=== PATIENT | male | born 1980 | race Two or more races ===

== ENCOUNTER 2018-04-11 12:49 | Emergency (ER) | payer OTHER ==
[2018-04-11 13:19] VITALS: BP 130/86; PULSE 85; TEMP 100.2; BMI 29.6
--- NOTE | 2018-04-11 13:40 | PDOC ---
Attending Attestation - Medical Decision Making 04/11/18 18:27 Knee X-ray was reviewed by Dr. Miguel and over-read by Radiology. IMPRESSION: There is no radiographic evidence of fracture. Mild degenerative bony spurring is noted along the upper pole of the patella. There is a probable suprapatellar joint effusion. Follow-up imaging as clinically indicated. Documentation prepared by Genoveva Mason, acting as medical surgical tech for Lauren Miguel MD. <Genoveva Mason - Last Filed: 04/11/18 18:27> - Resident Resident Name: Seth Dunn - ED Attending Attestation I have performed the following: I have examined & evaluated the patient, The case was reviewed & discussed with the resident, I agree w/resident's findings & plan, Exceptions are as noted - HPI HPI: 04/11/18 15:51 The patient is a 37 year old male with a significant past medical history of brain CA s/p resection at age 19 (with residual L facial droop), bipolar d/o ( on depakote, abilify) who presents to the emergency department complaining of R knee pain for 2 weeks. Pt reports he was walking outside of his apartment building but his knee buckled and he almost fell and called 911. Pt appears intoxicated on arrival and admits to smoking marijuana before coming to the ED. Denies EtOH or other drug use. Denies fevers, chills. Is able to bear weight on knee but with pain. Uses cane for ambulation since onset of knee pain. No hx surgery to the knee. Denies recent headache, cp, sob, abd pain, n/v/d, calf pain , edema. Spoke with Ruth Ann: Pt has been abusing marijuana and EtOH recently. There is a CPS case currently open because he came home belligerent and intoxicated last night to his apt where he lives with his and 2 kids. She is trying to get a restraining order at this time. She reports his right knee has been bothering him since playing in a basketball game last week. The patient denies chest pain, shortness of breath, headache, and dizziness. Denies fevers, chills, nausea, vomiting, diarrhea, and constipation. Denies dysuria, frequency, urgency, and hematuria. Allergies: NKA Past surgical history: brain surgery to remove tumor Social history: No reported cigarette, alcohol, or drug use. PCP: unknown - Physicial Exam PE: 04/11/18 20:01 GENERAL: Awake, alert, and fully oriented, in no acute distress HEAD: No signs of trauma EYES: PERRLA, EOMI, sclera anicteric, conjunctiva clear ENT: Auricles normal inspection, hearing grossly normal, nares patent, oropharynx clear without exudates. Moist mucosa NECK: Normal ROM, supple, no lymphadenopathy, JVD, or masses LUNGS: Breath sounds equal, clear to auscultation bilaterally. No wheezes, and no crackles HEART: Regular rate and rhythm, normal S1 and S2, no murmurs, rubs or gallops ABDOMEN: Soft, nontender, normoactive bowel sounds. No guarding, no rebound. No masses EXTREMITIES: R knee with ttp over MCL. Normal range of motion, no edema. No clubbing or cyanosis. No cords, erythema. No deformities. WWP. NEUROLOGICAL: Normal speech, + L facial droop, 5/5 strength in all 4 extremities, normal sensation to light touch in all 4 extremities, normal cerebellar exam, antalgic but steady gait, normal reflexes and tone SKIN: Warm, Dry, normal turgor, no rashes or lesions noted. - Medical Decision Making 04/11/18 20:04 37yo M hx brain ca s/p resection with residual L facial droop, bipolar d/o, PSA BIBEMS after acute knee pain while walking. Vitals wnl. Likely ligamentous or mensiscus injury. Will obtain XR to r/o bony injury but unlikely. Pt now appears clinically sober, is cooperative. States he feels better after toradol and is ambulating in the ED with cane with steady gait. States that he can not go to his apartment due to aforementioned social issues, states he will "find a place to go." Pt referred to ortho for knee pain. Stable for DC home. I discussed the physical exam findings, ancillary test results and final diagnoses with the patient. I answered all of the patient's questions. The patient was satisfied with the care received and felt comfortable with the discharge plan and treatment plan. The patient will call their primary care physician within 24 hours to arrange follow-up and will return to the Emergency Department with any new, persistent or worsening symptoms. <Nassef,Yomna - Last Filed: 04/11/18 20:13>
--- NOTE | 2018-04-11 13:59 | PDOC ---
History of Present Illness <Renetta Thacker - Last Filed: 04/11/18 15:23> - General History Source: Patient Exam Limitations: No Limitations - History of Present Illness Initial Comments: 04/11/18 13:52 The patient is a 37M with a PMH of brain CA with residual L facial droop who presents to the ER with complaints of b/l leg pain. The patient cannot tell me when it started but describes a cramping pain going down his legs bilaterally in the kyala-medial aspect. He states it is constant and does not change with movements. He denies any exacerbating or alleviating factors. He denies any back pain, fevers, h/o IVDA, numbness, tingling, or weakness, and saddle anesthesia. <Seth Dunn - Last Filed: 04/11/18 19:55> - General Chief Complaint: Pain, Acute Stated Complaint: LEG PAIN Time Seen by Provider: 04/11/18 13:11 Past History <Renetta Thacker - Last Filed: 04/11/18 15:23> - Past Medical History COPD: No - Surgical History Neurologic Surgery: Yes (SX FOR BRAIN TUMOR) - Suicide/Smoking/Psychosocial Hx Smoking History: Never smoked Have you smoked in the past 12 months: No Information on smoking cessation initiated: No Hx Alcohol Use: No Drug/Substance Use Hx: No Substance Use Type: None <Seth Dunn - Last Filed: 04/11/18 19:55> - Past Medical History Allergies/Adverse Reactions: Allergies Allergy/AdvReac Type Severity Reaction Status Date / Time No Known Allergies Allergy Verified 04/11/18 13:18 Home Medications: Ambulatory Orders Unobtainable 06/18/16 Review of Systems - Review of Systems Able to Perform ROS?: Yes Comments:: 04/11/18 14:02 GENERAL/CONSTITUTIONAL: No fever or chills. No weakness. HEAD, EYES, EARS, NOSE AND THROAT: No change in vision. No ear pain or discharge. No sore throat. CARDIOVASCULAR: No chest pain, palpitations, or lightheadedness. RESPIRATORY: No cough, wheezing, shortness of breath, or hemoptysis. GASTROINTESTINAL: No nausea, vomiting, diarrhea, constipation, or abdominal pain. GENITOURINARY: No dysuria, frequency, hematuria, or change in urination. MUSCULOSKELETAL:Positive for b/l leg cramping. No joint or muscle swelling or pain. No neck or back pain. SKIN: No rash or lesions. NEUROLOGIC: No headache, numbness, tingling, weakness, loss of consciousness, or change in strength/sensation. ENDOCRINE: No increased thirst. No abnormal weight change. HEMATOLOGIC/LYMPHATIC: No anemia, easy bleeding, or history of blood clots. ALLERGIC/IMMUNOLOGIC: No hives or skin allergy. Is the patient limited Amharic proficient: No <Seth Dunn - Last Filed: 04/11/18 19:55> *Physical Exam - Vital Signs Last Vital Signs Temp Pulse Resp BP Pulse Ox 100.2 F H 85 17 130/86 96 04/11/18 12:55 04/11/18 12:55 04/11/18 12:55 04/11/18 12:55 04/11/18 12:55 <Renetta Thacker - Last Filed: 04/11/18 15:23> - Vital Signs Last Vital Signs Temp Pulse Resp BP Pulse Ox 100.2 F H 85 17 130/86 96 04/11/18 12:55 04/11/18 12:55 04/11/18 12:55 04/11/18 12:55 04/11/18 12:55 - Physical Exam Comments: 04/11/18 14:05 GENERAL: Well developed, well nourished. Awake and alert. No acute distress. HEENT: Normocephalic, atraumatic. Hearing grossly normal. Moist mucous membranes. PERRLA, EOMI. No conjunctival pallor. Sclera are non-icteric. NECK: Supple. Full ROM. No JVD. CARDIOVASCULAR: Regular rate and rhythm. No murmurs, rubs, or gallops. Distal pulses are 2+ and symmetric. PULMONARY: No evidence of respiratory distress. Lungs clear to auscultation bilaterally. No wheezing, rales or rhonchi. ABDOMINAL: Soft. Non-tender. Non-distended. No rebound or guarding. GENITOURINARY: No CVA tenderness bilaterally. MUSCULOSKELETAL: TTP over L spine. TTP over kayla-medial legs b/l, distractable. Normal range of motion at all joints. No bony deformities or tenderness. EXTREMITIES: No cyanosis. No clubbing. No edema. No calf tenderness or swelling. SKIN: Warm and dry. Normal capillary refill. No rashes. No jaundice. NEUROLOGICAL: Alert, awake, appropriate. Cranial nerves 2-12 intact. No deficits to light touch and temperature in lower extremities. 5/5 strength in quadriceps, hamstrings, and gastrocnemius. Normal speech. PSYCHIATRIC: Cooperative. Good eye contact. Appropriate mood and affect. <Seth Dunn - Last Filed: 04/11/18 19:55> ED Treatment Course - LABORATORY CBC & Chemistry Diagram: 04/11/18 14:20 04/11/18 14:20 - ADDITIONAL ORDERS Additional order review: Laboratory Results 04/11/18 04/11/18 14:20 14:20 Sodium 147 H Potassium 4.3 Chloride 111 H Carbon Dioxide 29 Anion Gap 7 L BUN 11 Creatinine 1.1 Creat Clearance w eGFR > 60 Random Glucose 76 Calcium 8.5 Magnesium 2.0 Total Bilirubin 0.4 AST 15 ALT 33 Alkaline Phosphatase 84 Creatine Kinase 126 Total Protein 6.6 Albumin 3.5 04/11/18 14:20 RBC 4.45 MCV 85.6 MCHC 35.0 RDW 14.3 MPV 7.3 L Neutrophils % 67.3 Lymphocytes % 23.9 Monocytes % 6.9 Eosinophils % 0.9 Basophils % 1.0 <Renetta Thacker - Last Filed: 04/11/18 15:23> - LABORATORY CBC & Chemistry Diagram: 04/11/18 14:20 04/11/18 14:20 <Seth Dunn - Last Filed: 04/11/18 19:55> Medical Decision Making - Medical Decision Making 04/11/18 15:06 Dr. Bunn, Urology, was paged at 14:57 requesting a call back for doctor to doctor consult. I have been informed Dr. Delgadillo radha be returning the call. 04/11/18 15:23 Dr. Delgadillo was paged a second time. <Renetta Thacker - Last Filed: 04/11/18 15:23> - Medical Decision Making 04/11/18 14:07 The patient is a 37M with a PMH of brain CA who presents to the ER with b/l leg pain, unsure of duration. He has TTP over his L spine. Due to inconsistent history and physical, as well as low grade fever, will evaluate for l-spine pathology causing b/l leg cramping as well as basic labs. Pending labs and imaging. 04/11/18 14:15 I have vivienne Bauer. He was there last night via EMS for EtOH and R knee pain. Given ibuprofen then d /c. Afebrile. Med list: abilify 15mg qd, depakote 500mg 2 tabs orally at bedtime, and ziprasidone 20mg qd TID. 03/26: XR of knee - no fracture, possible foreign body in the thigh. Refer to ortho without f/u. Placed knee immobilizer. 04/11/18 17:40 Pt unable to ambulate. Will place for ED obs. 04/11/18 19:54 Pt ambulatory in ER. Will d/c with PCP and ortho f/u. <Seth Dunn - Last Filed: 04/11/18 19:55> *DC/Admit/Observation/Transfer <Renetta Thacker - Last Filed: 04/11/18 15:23> - Discharge Dispostion Decision to Admit order: No <Seth Dunn - Last Filed: 04/11/18 19:55> Diagnosis at time of Disposition: Ambulatory dysfunction Knee pain Qualifiers: Chronicity: acute Laterality: right Qualified Code(s): M25.561 - Pain in right knee - Discharge Dispostion Disposition: HOME Condition at time of disposition: Stable
[2018-04-11 14:34] LABS: EOS % 0.9 % (0-4.5); HEMOGLOBIN 13.3 GM/dL (11.7-16.9); LYMPH % 23.9 % (8-40); MEAN CELL VOLUME 85.6 fl (80-96); MEAN PLT VOLUME 7.3 fl (7.5-11.1); MONO % 6.9 % (3.8-10.2); NEUT % 67.3 % (42.8-82.8); PLATELET COUNT 306 K/MM3 (134-434); RBC 4.45 M/mm3 (4.00-5.60); RDW 14.3 % (11.9-15.9); WHITE BLOOD COUNT 7.5 K/mm3 (4.0-10.0)
[2018-04-11] MEDS ORDERED: KETOROLAC TROMETHAMINE 60 MG/2 ML VIAL IM ONE (14:51)
[2018-04-11] MEDS ORDERED: KETOROLAC TROMETHAMINE 60 MG/2 ML VIAL ONE (14:53)
[2018-04-11 15:00] LABS: ALBUMIN 3.5 g/dl (3.4-5.0); ANION GAP 7 (8-16); BILIRUBIN,TOTAL 0.4 mg/dL (0.2-1.0); BLOOD UREA NITROGEN 11 mg/dL (7-18); CALCIUM 8.5 mg/dL (8.5-10.1); CHLORIDE 111 mmol/L (98-107); CO2 29 mmol/L (21-32); CREATININE 1.1 mg/dL (0.7-1.3); GLUCOSE,RANDOM 76 mg/dL (74-106); POTASSIUM 4.3 mmol/L (3.5-5.1); SGOT/AST 15 U/L (15-37); SGPT/ALT 33 U/L (12-78); SODIUM 147 mmol/L (136-145); TOT PROT 6.6 g/dl (6.4-8.2)
[2018-04-11 15:01] LABS: ALK PHOS 84 U/L (45-117)
== END 2018-04-11 20:14 | disposition home or self-care (01) ==
LOC: JER 12:49 → UNDOADMOB 17:41 → JERBED 17:41 → UNDODISOB 20:14
PROC: 3E0233Z Introduction of Anti-inflammatory into Muscle, Percutaneous Approach (ICD-10-PCS; principal; 2018-04-11)
DX: M25.561 Pain in right knee (principal); R26.2 Difficulty in walking, not elsewhere classified; F31.9 Bipolar disorder, unspecified; F12.10 Cannabis abuse, uncomplicated; F10.10 Alcohol abuse, uncomplicated; Z85.841 Personal history of malignant neoplasm of brain; R29.810 Facial weakness
CPT/HCPCS: 36415; 73562-TC-RT-FY; 80053; 80307; 82550; 83735; 85025; 99282-25; G0378